=== PATIENT | female | born 1995 | race Caucasian/White ===

== ENCOUNTER 2017-11-20 08:36 | Day surgery (SDC) | payer MEDICAID ==
--- NOTE | 2017-11-20 08:55 | OR ---
Anesthesia Pre Procedure Eval Pre Procedure Evaluation: Last Vital Signs Temp 36.2 C L 11/20/17 08:48 Pulse 83 11/20/17 08:48 Resp 16 11/20/17 08:48 BP 134/66 11/20/17 08:48 Pulse Ox 95 11/20/17 08:48 O2 Oxygen Delivery Method Room Air PRE PROCEDURE EVALUATION:: DATE: 11/20/2017 TIME: 45 INDICATIONS: Lumbar puncture for CSF analysis. Headaches PAST MEDICAL HISTORY: Attempted lumbar puncture approximately 18 months ago without success. This procedure was done without fluoroscopy. EXAM: Lungs clear and equal. Heart rate regular. ASSESSMENT OF MEDICAL STATUS: Procedure risks and benefits were explained and accepted by the patient. No contraindication to fluoroscopy-guided lumbar puncture. PLANNED PROCEDURE : Fluoroscopy-guided lumbar puncture for CSF analysis. Home Medications: HOME MEDICATIONS Montelukast Sodium [Singulair] 10 mg PO DAILY 02/05/15 [Last Taken Unknown] Buspirone HCl 15 mg PO BID 08/10/16 [Last Taken Unknown] Folic Acid 0.8 mg PO DAILY 08/10/16 [Last Taken Unknown] Loratadine [Claritin] 10 mg PO DAILY 08/10/16 [Last Taken Unknown] Lurasidone HCl [Latuda] 40 mg PO DAILY 08/10/16 [Last Taken Unknown] Prazosin HCl [Minipress] 1 mg PO HS 08/10/16 [Last Taken Unknown] Venlafaxine HCl [Effexor Xr] 150 mg PO DAILY 08/10/16 [Last Taken Unknown] Fluticasone/Salmeterol [Advair 500-50 Diskus] 1 puff IH BID 11/15/17 [Last Taken Unknown] Levalbuterol HCl [Xopenex Concentrate] 1.25 mg IH Q4H 11/15/17 [Last Taken Unknown] Omeprazole 40 mg PO DAILY 11/15/17 [Last Taken Unknown] Vits96/Iron Fum/Folic [ S] 1 tab PO DAILY 11/15/17 [Last Taken Unknown] clonazePAM [Klonopin] 1 mg PO Q4H PRN 11/15/17 [Last Taken Unknown] traZODone HCL [Trazodone HCl] 100 mg PO DAILY 11/15/17 [Last Taken Unknown]
[2017-11-20] MEDS ORDERED: LIDOCAINE HCL 20 ML VIAL IJ ONE (09:22)
--- NOTE | 2017-11-20 10:22 | OR ---
Anesthesia Procedure Note - Anesthesia Procedure Note Narrative: Vital Signs - Last Taken Temp 36.2 C L 11/20/17 08:48 Pulse 70 11/20/17 10:00 Resp 18 11/20/17 10:00 BP 150/68 11/20/17 10:00 Pulse Ox 93 11/20/17 10:00 O2 Oxygen Delivery Method Room Air 11/20/17 10:14 ANESTHESIA PROCEDURE NOTE Date of procedure: 11/20/2017. Time of procedure: 08 09 through 1004. Performed by: Antonio Mayes CRNA [employer]: Laura Nicholson RN . Preprocedure diagnosis: Headaches. Post procedure diagnosis: Same. Procedure: Fluoroscopy-guided lumbar puncture for CSF analysis and CSF pressure measurements. Indications: Headaches. History of failed attempt at lumbar puncture without fluoroscopy. Findings: Patient brought the operating room #3 and placed in a prone position. Her back was prepped with DuraPrep. Fluoroscopy was used to identify opening at L4 5 interspace. 5 mL of 1% Xylocaine was injected before needle insertion. A 22-gauge 3 inch Marcos spinal needle was advanced( under fluoroscopic guidance. Unable to reach the dura with this needle. Fluoroscopy was used to identify opening at L3 4 interspace. A 22-gauge 3 inch Marcos spinal needle was advanced under fluoroscopic guidance but again was unable to reach the dura. A 22-gauge 7 inch Quincke spinal needle was then advanced under fluoroscopic guidance and dura was punctured. Patient was then carefully transferred into left lateral decubitus position. Opening CSF pressure was measured at 27. A total of 13 mL of clear CSF was obtained. 2 mL in each of the first 3 vials. And 7 mL and the fourth vial. Closing pressure was measured at 23. Total fluoroscopy time was 34.3 seconds. Total dose 27.58 m/ gy. EBL: Minimal. Fluids: N/A. Specimen: N/A. Post procedure condition: The patient tolerated the procedure well. No complications were noted. Thank you for this consultation Antonio Mayes CRNA
[2017-11-20 10:35] VITALS: BP 109/55
[2017-11-20 11:05] LABS: CSF Appearance Clear (CLEAR); CSF Color Colorless (COLORLESS); CSF Lymphocytes 100 % (0-100); CSF RBC 0 /uL (0-10); CSF WBC 2 /uL (0-10)
== END 2017-11-20 08:37 | disposition home or self-care (01) ==
LOC: AMB 08:36
PROVIDERS: ATTEND Student in an Organized Health Care Education/Training Program
PROC: 009U3ZX Drainage of Spinal Canal, Percutaneous Approach, Diagnostic (ICD-10-PCS; principal; 2017-11-20 09:15)
DX: R51 Headache (principal)

== ENCOUNTER 2019-01-16 17:22 | Observation (INO) ==
[2019-01-16] MEDS ORDERED: ALBUTEROL SULFATE/IPRATROPIUM 3 ML NEBU IH ONE ×2 (17:46→17:48)
--- NOTE | 2019-01-16 17:48 | ERNOTE ---
Date of Service: 01/16/19 Time Seen by Provider: 01/16/19 17:46 Stated Complaint: asthma s.o.b Presenting Symptoms:: cough Source: patient Exam Limitations: no limitations Immunizations: IMMUNIZATION HX Immunizations Up to Date Yes History of Influenza Vaccine Yes Hx Pneumococcal Vaccination No Allergies/Adverse Reactions: Allergies aspirin Allergy (Severe, Verified 01/16/19 17:34) Other Home Medications: HOME MEDICATIONS Montelukast Sodium [Singulair] 10 mg PO DAILY 02/05/15 [Last Taken Unknown] Folic Acid 0.8 mg PO DAILY 08/10/16 [Last Taken Unknown] Loratadine [Claritin] 10 mg PO DAILY 08/10/16 [Last Taken Unknown] Lurasidone HCl [Latuda] 40 mg PO DAILY 08/10/16 [Last Taken Unknown] Prazosin HCl [Minipress] 1 mg PO HS 08/10/16 [Last Taken Unknown] Fluticasone/Salmeterol [Advair 500-50 Diskus] 1 puff IH BID 11/15/17 [Last Taken Unknown] Omeprazole 40 mg PO DAILY 11/15/17 [Last Taken Unknown] Vits96/Iron Fum/Folic [ S] 1 tab PO DAILY 11/15/17 [Last Taken Unknown] clonazePAM [Klonopin] 1 mg PO Q4H PRN 11/15/17 [Last Taken Unknown] Albuterol Sulfate [Ventolin HFA] 1 puff INHALATION PRN PRN 01/16/19 [Last Taken Unknown] Bupropion HCl [Wellbutrin Sr] 300 mg PO DAILY 01/16/19 [Last Taken Unknown] Fluticasone Propionate [Flonase] 1 spray NS DAILY 01/16/19 [Last Taken Unknown] Furosemide [Lasix] 40 mg PO BID 01/16/19 [Last Taken Unknown] Tiotropium [place] [Spiriva] 2 cap INHALATION DAILY 01/16/19 [Last Taken Unknown] predniSONE [Prednisone] 20 mg PO DAILY 01/16/19 [Last Taken Unknown] - History of Present Ilness Narrative: The patient is a 23 year old female who presents for cough and dyspnea which has been present for 4 days. There are associated symptoms of wheezing and sternal chest discomfort with cough. The patient denies pain except with coughing. There are no alleviating factors. There are aggravating factors of activity. Previous treatments have included: albuterol without improvement. The past medical history includes: asthma, alpha-1 antitrypsin deficiency. The social history is positive for current tobacco use. The patient has had no known ill contacts. Patient states she had evaluation with her PCP today with outpatient CXR which they notified her was normal as well as increased her prednisone to 20mg po daily from 10mg. Timing: getting worse Review of Systems - Review of Systems Constitutional: Present: chills, fatigue. Absent: fever EYE: Present: no symptoms reported ENT: Present: sore throat. Absent: ear pain, nose congestion, nasal drainage Respiratory: Present: shortness of breath, cough, wheezing Cardiology: Present: chest pain Gastrointestinal/Abdominal: Present: no symptoms reported. Absent: nausea, vomiting, diarrhea, abdominal pain Genitourinary: Present: no symptoms reported. Absent: dysuria Musculoskeletal: Present: no symptoms reported Skin: Present: no symptoms reported. Absent: rash Neurological: Present: no symptoms reported Endocrine: Present: no symptoms reported Hematologic/Lymphatic: Present: no symptoms reported Psych: Present: no symptoms reported All Other Systems: All systems neg except as marked Medical History (Last Reviewed 01/16/19 @ 19:12 by BETSY Orellana) Hypca-7-hxkjwefkobe deficiency Asthma Collapsed lung Colonoscopy planned Surgical History: Surgical History (Last Reviewed 01/16/19 @ 19:12 by BETSY Orellana) History of lung biopsy History of tonsillectomy and adenoidectomy Family History: Family History (Last Updated 01/16/19 @ 19:49 by Mary Alice Loya RN) Other No pertinent family history Social History: Preferred Language Italian Smoking Status Current every day smoker Psych History Hx of Anxiety,Hx of Depression,Currently on Meds Alcohol Use none Drug Use none No Social History Section defined Physical Exam - Physical Exam General Appearance: Present: wd/wn, alert, mild distress Head Exam: Present: normal inspection Eye Exam: Normal inspection: bilateral Ears, Nose, Throat: Present: normal ENT inspection, pharyngeal erythema Neck: Present: normal inspection, nontender Respiratory: Present: chest nontender, accessory muscle use, decreased breath sounds, wheezing - diffuse expiratory and inspiratory wheezing Cardiovascular/Chest: Present: no murmur, tachycardia Neurological Exam: Present: alert, oriented, normal mood/affect Skin Exam: Present: normal color, warm/dry Progress - Date and Time Seen: Date and Time: 01/16/19 19:09 Discussed case with , informed that starting magnesium due to decreased responsiveness to albuterol treatments. Patient wheezing and dyspnea remained unchanged after 3 consecutive albuterol nebs. CXR obtained outpatient by [facility] report reviewed showing now acute cardiopulmonary abnormalities. - Results and Orders Patient's Lab Results:: I have reviewed the patient's lab results. - Vital Signs Patient's Vital Signs:: I have reviewed the patient's vital signs. Vital Signs: Vital Signs 01/16/19 17:23 Temperature 36.5 C Pulse Rate 100 Respiratory Rate 20 Blood Pressure 124/84 O2 Sat by Pulse Oximetry 96 - EKG EKG #1 EKG: NSR EKG read: Reviewed by me - Progress/Reassessment Chief Complaint: Asthma Departure Clinical Impression: Acute asthma exacerbation Qualifiers: Asthma severity: unspecified severity Asthma persistence: unspecified Qualified Code(s): J45.901 - Unspecified asthma with (acute) exacerbation - Departure Disposition: Still a patient Condition: Fair
[2019-01-16] MEDS ORDERED: METHYLPREDNISOLONE SOD SUCC/PF 125 MG/2 ML VIAL IV ONE (18:02)
[2019-01-16] MEDS ORDERED: ALBUTEROL SULFATE 2.5 MG/0.5 ML VIAL.NEB IH ONE ×2 (18:04→18:19)
[2019-01-16 18:27] LABS: Hematocrit 46.3 % (37.0-47.0); Mean Corpuscular Hemoglobin 30.1 pg (27-31); Mean Corpuscular Hgb Conc 34.6 g/dl (32-36); Mean Platelet Volume 8.6 fl (8-12.5); Neutrophil # 7.1 K/mm3 (1.3-6.0); Neutrophil % 70.2 % (42-75.0); Platelet Count 288 K/mm3 (150-450); Red Blood Count 5.32 M/mm3 (4.2-5.4); Red Cell Distribution Width 12.9 % (11.5-14.0); White Blood Count 10.1 K/mm3 (4.0-10.5)
[2019-01-16] MEDS ORDERED: ACETAMINOPHEN 500 MG TABLET PO ONE (18:30)
[2019-01-16 18:43] LABS: ALT 25 U/L (19-67); AST 18 U/L (0-48); Albumin * 3.9 gm/dl (3.4-5.0); Alkaline Phosphatase * 76 U/L (50-170); Anion Gap 18.8 mmol/L (6.8-13.8); BUN/Creatinine Ratio 6.9 (9.0-21.6); Bilirubin, Total 0.5 mg/dL (0.0-1.1); Blood Urea Nitrogen 6 mg/dL (3-23); Ca. Corrected For Albumin 9.1 mg/dL (8.4-10.2); Calcium * 9.3 mg/dL (7.9-10.9); Carbon Dioxide 21.1 mmol/L (24-32.6); Chloride 106 mmol/L (97-106); Glucose * 130 mg/dL (70-110); Potassium 3.9 mmol/L (3.4-4.6); Sodium 142 mmol/L (132-142); Total Protein 7.8 gm/dL (6.2-8.2); Troponin I Less than 0.017 ng/mL (0.00-0.10)
[2019-01-16] MEDS ORDERED: WATER IV ONE (19:15)
[2019-01-16] MEDS ORDERED: MAGNESIUM SULFATE IV ONE (19:15)
[2019-01-16] MEDS ORDERED: NICOTINE 21 MG PATC TD SCH (19:15)
[2019-01-17] MEDS: ALBUTEROL SULFATE/IPRATROPIUM 3 ML NEBU IH SCH ×2 (05:20→13:13)
[2019-01-17] MEDS ORDERED: ACETAMINOPHEN 325 MG TABLET PO PRN (07:07)
--- NOTE | 2019-01-17 11:48 | HP ---
Chief Complaint - Chief Complaint Date of Service: 01/17/19 Time of Service: 11:43 Chief Complaint: SOB History of Present Illness: 23-year-old female with a past medical history of asthma, alpha-1 antitrypsin deficiency, collapsed lung presents with a 4-day history of cough and dyspnea. Associated with a cough. Patient had recently been seen as an outpatient and her prednisone dose was increased to 20 mg a day from 10 mg daily. She did not get relief from her new dose presented to the emergency room. In the emergency department she received a dose of Solu-Medrol, and multiple number like nebulizer treatments with good relief of her symptoms. She states she feels better today. Her vitals are stable. She feels ready to go home. Medical History (Last Updated 01/16/19 @ 21:03 by Charo Trinidad RN) [id number] deficiency Asthma COPD (chronic obstructive pulmonary disease) Collapsed lung Colonoscopy planned Surgical History: Surgical History (Last Reviewed 01/16/19 @ 21:03 by Charo Trinidad RN) History of lung biopsy History of tonsillectomy and adenoidectomy Family History: Family History (Last Reviewed 01/16/19 @ 21:03 by Charo Trinidad RN) Grandfather FH: lung cancer Grandmother FH: lung cancer Mother COPD (chronic obstructive pulmonary disease) Other Lung cancer No pertinent family history Social History: Patient Lives/Resources With Parents Utilized Occupation [employer] Preferred Language Lao Do you have any nondenominational or No cultural preference? Smoking Status Current every day smoker Have you smoked in the past 12 Yes months Do you dip or chew tobacco No Psych History Hx of Anxiety,Hx of Depression,Currently on Meds Alcohol Use none Drug Use none No Social History Section defined Review Of Systems (GEN) - Review of Systems Generalized/Overall Review: Absent: Chills, Fever Respiratory: Present: Cough, Shortness of Breath Cardiac: Present: Chest Pain Neurological: Present: Headache Misc: All systems neg except as marked Immunizations: IMMUNIZATION HX Immunizations Up to Date Yes History of Influenza Vaccine Yes Hx Pneumococcal Vaccination No Allergies/Adverse Reactions: Allergies Allergy/AdvReac Type Severity Reaction Status Date / Time aspirin Allergy Severe Other Verified 01/16/19 17:34 Home Medications: HOME MEDICATIONS Montelukast Sodium [Singulair] 10 mg PO DAILY 02/05/15 [Last Taken Unknown] Folic Acid 0.8 mg PO DAILY 08/10/16 [Last Taken Unknown] Loratadine [Claritin] 10 mg PO DAILY 08/10/16 [Last Taken Unknown] Lurasidone HCl [Latuda] 40 mg PO DAILY 08/10/16 [Last Taken Unknown] Prazosin HCl [Minipress] 1 mg PO HS 08/10/16 [Last Taken Unknown] Fluticasone/Salmeterol [Advair 500-50 Diskus] 1 puff IH BID 11/15/17 [Last Taken Unknown] Omeprazole 40 mg PO DAILY 11/15/17 [Last Taken Unknown] Vits96/Iron Fum/Folic [ S] 1 tab PO DAILY 11/15/17 [Last Taken Unknown] clonazePAM [Klonopin] 1 mg PO Q4H PRN 11/15/17 [Last Taken Unknown] Albuterol Sulfate [Ventolin HFA] 1 puff INHALATION PRN PRN 01/16/19 [Last Taken Unknown] Bupropion HCl [Wellbutrin Sr] 300 mg PO DAILY 01/16/19 [Last Taken Unknown] Fluticasone Propionate [Flonase] 1 spray NS DAILY 01/16/19 [Last Taken Unknown] Furosemide [Lasix] 40 mg PO BID 01/16/19 [Last Taken Unknown] Tiotropium [place] [Spiriva] 2 cap INHALATION DAILY 01/16/19 [Last Taken Unknown] predniSONE [Prednisone] 20 mg PO DAILY 01/16/19 [Last Taken Unknown] Exam - Exam Vital Signs: Vital Signs - Last Taken Temp 35.9 C L 01/17/19 09:00 Pulse 107 H 01/17/19 09:00 Resp 18 01/17/19 09:00 BP 117/65 01/17/19 09:00 Pulse Ox 95 01/17/19 09:00 Constitutional: Present: Alert, Oriented x3, Cooperative, Well developed, Well nourished, No distress ENT Exam: Present: hearing grossly normal Eye Exam: bilateral eye: normal inspection Neck: Present: supple, trachea midline. Absent: lymphadenopathy (R), lymphadenopathy (L) Back Exam: Present: normal inspection Respiratory: Present: no accessory muscle use, wheezing - Diffuse expiratory wheezes bilaterally Cardiovascular/Chest: Present: normal peripheral pulses, regular rate, rhythm, no edema, no murmur Peripheral Pulses: dorsalis-pedis (R): 2+, dorsalis-pedis (L): 2+ Abdomen: Present: Normal bowel sounds, nontender Extremity: Present: no pedal edema Skin Exam: Present: normal color, warm/dry Neurologic: Present: alert, normal mood/affect Appearance: Present: appropriate appearance Eye contact: Present: cooperative Thoughts: Present: normal thought pattern Diagnostic Studies: Abnormal Lab Results 01/16/19 01/16/19 Range/Units 18: 18:20 Neutrophils # 7.1 H (1.3-6.0) K/mm3 Carbon Dioxide 21.1 L (24-32.6) mmol/L Anion Gap 18.8 H (6.8-13.8) mmol/L BUN/Creatinine Ratio 6.9 L (9.0-21.6) Random Glucose 130 H (70-110) mg/dL Laboratory Results WBC 10.1 K/mm3 (4.0-10.5) 01/16/19 18:20 RBC 5.32 M/mm3 (4.2-5.4) 01/16/19 18:20 Hgb 16.0 gm/dL (12.5-16.0) 01/16/19 18:20 Hct 46.3 % (37.0-47.0) 01/16/19 18:20 MCV 87.0 fl (78-100) 01/16/19 18:20 MCH 30.1 pg (27-31) 01/16/19 18:20 MCHC 34.6 g/dl (32-36) 01/16/19 18:20 RDW 12.9 % (11.5-14.0) 01/16/19 18:20 Plt Count 288 K/mm3 (150-450) 01/16/19 18:20 MPV 8.6 fl (8-12.5) 01/16/19 18:20 Immature Gran % (Auto) 0.30 % (0.001-0.429) 01/16/19 18:20 Immature Gran # (Auto) 0.03 K/mm3 (0.000-0.0310) 01/16/19 18:20 Neutrophils % 70.2 % (42-75.0) 01/16/19 18:20 Lymphocytes % 23.7 % (20-51) 01/16/19 18:20 Monocytes % 5.3 % (0.0-9) 01/16/19 18:20 Eosinophils % 0.1 % (0.0-3.0) 01/16/19 18:20 Basophils % 0.4 % (0.0-1.0) 01/16/19 18:20 Nucleated RBC % 0.0 k/mm3 (0-1) 01/16/19 18:20 Neutrophils # 7.1 K/mm3 (1.3-6.0) H 01/16/19 18:20 Lymphocytes # 2.39 k/mm3 (1.5-3.5) 01/16/19 18:20 Monocytes # 0.5 k/mm3 (0.0-1.0) 01/16/19 18:20 Eosinophils # 0.0 k/mm3 (0.0-0.7) 01/16/19 18:20 Absolute Basophils 0.0 k/mm3 (0.0-0.1) 01/16/19 18:20 D-Dimer 0.28 ug/mL (0.19-0.49) 01/16/19 18:20 Sodium 142 mmol/L (132-142) 01/16/19 18:20 Plasma Sodium 142 mmol/L (130-142) 01/16/19 18:20 Potassium 3.9 mmol/L (3.4-4.6) 01/16/19 18:20 Chloride 106 mmol/L (97-106) 01/16/19 18:20 Carbon Dioxide 21.1 mmol/L (24-32.6) L 01/16/19 18:20 Anion Gap 18.8 mmol/L (6.8-13.8) H 01/16/19 18:20 BUN 6 mg/dL (3-23) 01/16/19 18:20 Creatinine 0.87 mg/dL (0.4-1.4) 01/16/19 18:20 Est GFR (Non-Af Amer) 84 mL/min (60-130) 01/16/19 18:20 BUN/Creatinine Ratio 6.9 (9.0-21.6) L 01/16/19 18:20 Random Glucose 130 mg/dL (70-110) H 01/16/19 18:20 Calcium 9.3 mg/dL (7.9-10.9) 01/16/19 18:20 Calcium Adj for Albumin 9.1 mg/dL (8.4-10.2) 01/16/19 18:20 Magnesium 2.2 mg/dL (1.2-2.8) 01/16/19 18:20 Total Bilirubin 0.5 mg/dL (0.0-1.1) 01/16/19 18:20 AST 18 U/L (0-48) 01/16/19 18:20 ALT 25 U/L (19-67) 01/16/19 18:20 Alkaline Phosphatase 76 U/L (50-170) 01/16/19 18:20 Troponin I Less than 0.017 ng/mL (0.00-0.10) 01/16/19 18:20 Total Protein 7.8 gm/dL (6.2-8.2) 01/16/19 18:20 Albumin 3.9 gm/dl (3.4-5.0) 01/16/19 18:20 Assessment/Plan - Narrative Narrative: 23-year-old female with a past medical history of alpha-1 antitrypsin deficiency, asthma, collapsed lung presents with asthma exacerbation. Chest x- ray negative. Responded well to IV Solu-Medrol and magnesium and nebulizers. - Assessment/Plan (1) Acute asthma exacerbation Assessment: Resolved with Solu-Medrol, magnesium and nebulizers. Problem: Resolved Qualifiers: Asthma severity: unspecified severity Asthma persistence: unspecified Qualified Code(s): J45.901 - Unspecified asthma with (acute) exacerbation (2) Sinuv-[id number] deficiency Assessment: She is on chronic steroids, continue current dose of prednisone at 20 mg daily. 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 Problem: Chronic
--- NOTE | 2019-01-17 12:05 | DS ---
(1) Acute asthma exacerbation Problem: Resolved Qualifiers: Asthma severity: unspecified severity Asthma persistence: unspecified Qualified Code(s): J45.901 - Unspecified asthma with (acute) exacerbation (2) [id number] deficiency Problem: Chronic Description of Stay: 23-year-old female with a past medical history of asthma, alpha-1 antitrypsin deficiency, collapsed lung presents with an acute asthma exacerbation. She is on chronic steroids and it had recently been increased to 20 mg/day. She states she has missed her medication for the alpha-1 antitrypsin and was to 3 weeks ago. This may be a contributing factor to her asthma exacerbation. She was given 1 dose of Solu-Medrol, multiple doses of nebulizers, 1 dose of magnesium with good response. She will be discharged back to home today. Procedures Performed: none Results and Findings: Lab Pending Results 01/16/19 18:20: WBC 10.1, RBC 5.32, Hgb 16.0, Hct 46.3, MCV 87.0, MCH 30.1, MCHC 34.6, RDW 12.9, Plt Count 288, MPV 8.6, Immature Gran % (Auto) 0.30, Immature Gran # (Auto) 0.03, Neutrophils % 70.2, Lymphocytes % 23.7, Monocytes % 5.3, Eosinophils % 0.1, Basophils % 0.4, Nucleated RBC % 0.0, Neutrophils # 7.1 H, Lymphocytes # 2.39, Monocytes # 0.5, Eosinophils # 0.0, Absolute Basophils 0.0 01/16/19 18:20: Sodium 142, Plasma Sodium 142, Potassium 3.9, Chloride 106, Carbon Dioxide 21.1 L, Anion Gap 18.8 H, BUN 6, Creatinine 0.87, Est GFR (Non-Af Amer) 84, BUN/Creatinine Ratio 6.9 L, Random Glucose 130 H, Calcium 9.3, Calcium Adj for Albumin 9.1, Total Bilirubin 0.5, AST 18, ALT 25, Alkaline Phosphatase 76, Troponin I Less than 0.017, Total Protein 7.8, Albumin 3.9 01/16/19 18:20: D-Dimer 0.28 01/16/19 18:20: Magnesium 2.2 Discharge Location: Home Disposition: Home self-care Condition: Fair Discharge Activity: Activity as tolerated Discharge Diet: General/regular food Referrals: Beatriz Rivera ARNP [Primary Care Provider] - Complete Home Medications List: Complete Home Medication List: Montelukast Sodium [Singulair] 10 mg PO DAILY 02/05/15 Folic Acid 0.8 mg PO DAILY 08/10/16 Loratadine [Claritin] 10 mg PO DAILY 08/10/16 Lurasidone HCl [Latuda] 40 mg PO DAILY 08/10/16 Prazosin HCl [Minipress] 1 mg PO HS 08/10/16 Fluticasone/Salmeterol [Advair 500-50 Diskus] 1 puff IH BID 11/15/17 Omeprazole 40 mg PO DAILY 11/15/17 Vits96/Iron Fum/Folic [ S] 1 tab PO DAILY 11/15/17 clonazePAM [Klonopin] 1 mg PO Q4H PRN 11/15/17 Albuterol Sulfate [Ventolin HFA] 1 puff INHALATION PRN PRN 01/16/19 Bupropion HCl [Wellbutrin Sr] 300 mg PO DAILY 01/16/19 Fluticasone Propionate [Flonase] 1 spray NS DAILY 01/16/19 Furosemide [Lasix] 40 mg PO BID 01/16/19 Tiotropium [place] [Spiriva] 2 cap INHALATION DAILY 01/16/19 predniSONE [Prednisone] 20 mg PO DAILY 01/16/19
[2019-01-17 16:10] VITALS: BP 129/69
== END 2019-01-17 14:30 | disposition home or self-care (01) ==
LOC: MS 17:22 → ER 17:22
PROVIDERS: ADMIT Internal Medicine; ATTEND Internal Medicine
CPT/HCPCS: 36415; 80053; 83735; 84484; 85025; 85379; 93005; 94640; 94664; 94760; 96365; 96375; 99285; G0378

== ENCOUNTER 2019-04-20 12:07 | Observation (INO) ==
[2019-04-20] MEDS ORDERED: METHYLPREDNISOLONE SOD SUCC/PF 125 MG/2 ML VIAL IV ONE (12:35)
[2019-04-20] MEDS ORDERED: ALBUTEROL SULFATE/IPRATROPIUM 3 ML NEBU IH ONE ×2 (12:35→17:58)
[2019-04-20 12:55] LABS: Hematocrit 46.6 % (37.0-47.0); Hemoglobin 15.8 gm/dL (12.5-16.0); Mean Cell Volume 89.3 fl (78-100); Mean Corpuscular Hemoglobin 30.3 pg (27-31); Mean Corpuscular Hgb Conc 33.9 g/dl (32-36); Mean Platelet Volume 8.8 fl (8-12.5); Neutrophil # 2.8 K/mm3 (1.3-6.0); Neutrophil % 44.3 % (42-75.0); Platelet Count 238 K/mm3 (150-450); Red Blood Count 5.22 M/mm3 (4.2-5.4); Red Cell Distribution Width 12.7 % (11.5-14.0); White Blood Count 6.3 K/mm3 (4.0-10.5)
[2019-04-20 13:07] LABS: Albumin * 3.3 gm/dl (3.4-5.0); Anion Gap 17.3 mmol/L (6.8-13.8); BUN/Creatinine Ratio 9.9 (9.0-21.6); Bilirubin, Total 0.7 mg/dL (0.0-1.1); Ca. Corrected For Albumin 8.5 mg/dL (8.4-10.2); Calcium * 8.3 mg/dL (7.9-10.9); Carbon Dioxide 22.6 mmol/L (24-32.6); Potassium 3.9 mmol/L (3.4-4.6); Total Protein 6.8 gm/dL (6.2-8.2)
--- NOTE | 2019-04-20 13:18 | ERNOTE ---
Dyspnea - Date Date of Service: 04/20/19 - General Presenting Symptoms: shortness of breath Time Seen by Provider: 04/20/19 12:29 Source: patient Exam Limitations: no limitations - Immun/Allergies/Home Medications Immunizations: IMMUNIZATION HX Immunizations Up to Date Yes History of Influenza Vaccine Yes Hx Pneumococcal Vaccination Yes Allergies/Adverse Reactions: Allergies aspirin Allergy (Severe, Verified 04/20/19 12:19) Other corn Allergy (Verified 04/20/19 12:19) hives Milk Containing Products Allergy (Verified 04/20/19 12:19) Hives peanut Allergy (Verified 04/20/19 12:19) Hives Home Medications: HOME MEDICATIONS Montelukast Sodium [Singulair] 10 mg PO DAILY 02/05/15 [Last Taken Unknown] Folic Acid 0.8 mg PO DAILY 08/10/16 [Last Taken Unknown] Loratadine [Claritin] 10 mg PO DAILY 08/10/16 [Last Taken Unknown] Lurasidone HCl [Latuda] 40 mg PO DAILY 08/10/16 [Last Taken Unknown] Prazosin HCl [Minipress] 1 mg PO HS 08/10/16 [Last Taken Unknown] Fluticasone Propion/Salmeterol [Advair 500-50 Diskus] 1 puff IH BID 11/15/17 [Last Taken Unknown] Omeprazole 40 mg PO DAILY 11/15/17 [Last Taken Unknown] Vits96/Iron Fum/Folic [ S] 1 tab PO DAILY 11/15/17 [Last Taken Unknown] clonazePAM [Klonopin] 1 mg PO Q4H PRN 11/15/17 [Last Taken Unknown] Albuterol Sulfate [Ventolin HFA] 1 puff INHALATION PRN PRN 01/16/19 [Last Taken Unknown] Bupropion HCl [Wellbutrin Sr] 300 mg PO DAILY 01/16/19 [Last Taken Unknown] Fluticasone Propionate [Flonase] 1 spray NS DAILY 01/16/19 [Last Taken Unknown] Furosemide [Lasix] 40 mg PO BID 01/16/19 [Last Taken Unknown] Tiotropium [place] [Spiriva] 2 cap INHALATION DAILY 01/16/19 [Last Taken Unknown] predniSONE [Prednisone] 5 mg PO DAILY 01/16/19 [Last Taken Unknown] - History of Present Illness Narrative: Patient presents to the ED for feeling SOB. She feels like this is her COPD. She states it is really bad when she wakes up with it which is what happened today. She has been SOB this morning. No pleuritic pain. No PE symptoms. She has chest tightness with this SOB which is normal for her. She has had some coughing. No fever. No other recent illnesses. Severity: moderate Treatment DOUBLE END TRIMMER: other - inhalers DOUBLE END TRIMMER. Initiating event: Denies: out of meds Modifying Factors - (Improves): Reports: nothing Modifying Factors (Worsens): Reports: activity Associated Symptoms-Dyspnea: Denies: fever/chills, leg/calf pain, weakness Prior Treatment: Denies: currently on antibiotics Review of Systems - Review of Systems Constitutional: Absent: fever ENT: Absent: sore throat Respiratory: Present: shortness of breath Cardiology: Present: See HPI Gastrointestinal/Abdominal: Absent: abdominal pain Genitourinary: Absent: dysuria Skin: Absent: rash Neurological: Absent: weakness All Other Systems: All systems neg except as marked Medical History (Updated 03/13/19 @ 14:00 by Renée Parham RN) Jowiy-4-fhjkpjszggc deficiency Asthma Onset Date: ~12/2015 usually hospitalized yearly for asthma COPD (chronic obstructive pulmonary disease) Collapsed lung Heart murmur Lung mass Anxiety Depression GERD (gastroesophageal reflux disease) HSV (herpes simplex virus) infection Type 2 NAFLD (nonalcoholic fatty liver disease) Obesity Irregular periods Pelvic pain Onset Date: ~02/03/16 Surgical History: Surgical History (Updated 03/13/19 @ 14:00 by Renée Parham RN) Colonoscopy planned History of lung biopsy lung mass History of tonsillectomy and adenoidectomy Onset Date: ~1999 [place] teeth extracted Family History: Family History (Updated 03/13/19 @ 14:14 by Renée Parham RN) Grandfather FH: lung cancer Grandmother FH: lung cancer Hypertension Mother COPD (chronic obstructive pulmonary disease) Rheumatoid arthritis Asthma Fibromyalgia Osteoarthritis Lung nodules Emphysema lung Father Schizophrenia Anxiety Liver disease Stomach cancer Brother Epilepsy Grandmother Ywkvn-3-gibwnvxdlun deficiency COPD (chronic obstructive pulmonary disease) Other Lung cancer Social History: Preferred Language Lithuanian Do you have any voodoo or No cultural preference? Smoking Status Current every day smoker Psych History Hx of Anxiety,Hx of Depression,Currently on Meds Alcohol Use none Drug Use none No Social History Section defined Physical Exam - Physical Exam General Appearance: Present: alert, mild distress, other - tachypnea noted Head Exam: Present: normal inspection, no evidence of injury Eye Exam: Normal inspection: bilateral, PERRL: bilateral Ears, Nose, Throat: Present: nasal congestion. Absent: pharyngeal erythema, dry mucous membranes Neck: Present: normal inspection Respiratory: Present: wheezing, other - I:E wheezes in both lung zaman. Cardiovascular/Chest: Present: regular rate, rhythm, normal peripheral pulses Gastrointestinal/Abdominal: Present: normal bowel sounds, nontender, soft Back Exam: Absent: CVA tenderness (R), CVA tenderness (L) Extremity Exam: Present: normal inspection, normal range of motion Neurological Exam: Present: alert, no motor/sensory deficits Skin Exam: Present: normal color, warm/dry Progress - Results and Orders Patient's Lab Results:: I have reviewed the patient's lab results. - Vital Signs Patient's Vital Signs:: I have reviewed the patient's vital signs. Vital Signs: Vital Signs 04/20/19 12:08 Temperature 36.5 C Pulse Rate 92 Respiratory Rate 26 H Blood Pressure 117/72 O2 Sat by Pulse Oximetry 98 - EKG EKG #1 EKG: NSR EKG read: Interp. by me EKG Comments: NSR rate 92. Non-specific, no STEMI noted. - X-Ray X-Ray #1 X-Ray: chest Interpretation: Interp. by me X-ray Comments: I reviewed official radiology report for CXR - Progress/Reassessment Chief Complaint: Dyspnea Progress Note-Subjective: 04/20/19 15:24 Patient received Duoneb, albuterol and 3rd albuterol with Solumedrol. After the 3rd treatment her wheezing was improved but still present in both lungs. She related that she get put in the hospital when this happens. I discussed options with her and she would like me to speak to the telephone engineer physician about admitting her. I spoke to Dr Butler who agreed to observation. ABG was unsuccessful. Departure Clinical Impression: Asthma exacerbation - Departure Disposition: Still a patient Condition: Stable Referrals: Beatriz Rivera ARNP [Primary Care Provider] -
[2019-04-20] MEDS ORDERED: ALBUTEROL SULFATE 2.5 MG/0.5 ML VIAL.NEB IH ONE ×3 (13:25→14:45)
[2019-04-20] MEDS ORDERED: METHYLPREDNISOLONE SOD SUCC/PF 125 MG/2 ML VIAL IM ONE (13:51)
[2019-04-20] MEDS ORDERED: ALBUTEROL SULFATE/IPRATROPIUM 3 ML NEBU IH SCH (16:30)
--- NOTE | 2019-04-20 17:42 | HP ---
Chief Complaint - Chief Complaint Date of Service: 04/20/19 Time of Service: 17:42 Chief Complaint: Shortness of breath, chest tightness History of Present Illness: Shayy is a 23 yo female with qilim-4-upbwvgnrsao disease, asthma, a nd allergies. She was hospitalized last month for asthma exacerbation and she presented to the ER today because her symptoms felt just like that episode. She reports shortness of breath and chest tightness started 3 days ago and has been getting worse. In the ER she had no hypoxia, chest xray was clear, and bloodwork was overall ok. She felt significant dyspnea and felt unsafe at home. Medical History (Updated 04/20/19 @ 17:42 by Dillon Butler DO) Ymyyq-4-qkakityvjse deficiency Asthma Onset Date: ~12/2015 usually hospitalized yearly for asthma COPD (chronic obstructive pulmonary disease) Collapsed lung Heart murmur Lung mass Anxiety Depression GERD (gastroesophageal reflux disease) HSV (herpes simplex virus) infection Type 2 NAFLD (nonalcoholic fatty liver disease) Obesity Irregular periods Pelvic pain Onset Date: ~02/03/16 Surgical History: Surgical History (Updated 04/20/19 @ 17:42 by Dillon Butler DO) Colonoscopy planned History of lung biopsy lung mass History of tonsillectomy and adenoidectomy Onset Date: ~1999 [place] teeth extracted Family History: Family History (Updated 03/13/19 @ 14:14 by Renée Parham RN) Grandfather FH: lung cancer Grandmother FH: lung cancer Hypertension Mother COPD (chronic obstructive pulmonary disease) Rheumatoid arthritis Asthma Fibromyalgia Osteoarthritis Lung nodules Emphysema lung Father Schizophrenia Anxiety Liver disease Stomach cancer Brother Epilepsy Grandmother Ibyme-6-trtcyfseoyr deficiency COPD (chronic obstructive pulmonary disease) Other Lung cancer Social History: Patient Lives/Resources Home Utilized Preferred Language Sami Do you have any yarsanism or No cultural preference? Smoking Status Current every day smoker Have you smoked in the past 12 Yes months Psych History Hx of Anxiety,Hx of Depression,Currently on Meds Alcohol Use none Drug Use none No Social History Section defined Review Of Systems (GEN) - Review of Systems Generalized/Overall Review: Present: Fatigue. Absent: Weakness, Chills, Fever EENTM: Present: No Symptoms Reported Respiratory: Present: Cough, Shortness of Breath Cardiac: Absent: Chest Pain, Edema, Palpitations, Syncope Abdominal: Absent: Nausea, Vomiting Genitourinary: Present: No Symptoms Reported Musculoskeletal: Present: No Symptoms Reported Neurological: Present: No Symptoms Reported Skin: Present: No Symptoms Reported Endocrine: Present: No Symptoms Reported Immunizations: IMMUNIZATION HX Immunizations Up to Date Yes History of Influenza Vaccine Yes Hx Pneumococcal Vaccination Yes Allergies/Adverse Reactions: Allergies Allergy/AdvReac Type Severity Reaction Status Date / Time aspirin Allergy Severe Other Verified 04/20/19 12:19 corn Allergy hives Verified 04/20/19 12:19 Milk Containing Products Allergy Hives Verified 04/20/19 12:19 peanut Allergy Hives Verified 04/20/19 12:19 Home Medications: HOME MEDICATIONS Montelukast Sodium [Singulair] 10 mg PO DAILY 02/05/15 [Last Taken Unknown] Folic Acid 0.8 mg PO DAILY 08/10/16 [Last Taken Unknown] Loratadine [Claritin] 10 mg PO DAILY 08/10/16 [Last Taken Unknown] Lurasidone HCl [Latuda] 40 mg PO DAILY 08/10/16 [Last Taken Unknown] Prazosin HCl [Minipress] 1 mg PO HS 08/10/16 [Last Taken Unknown] Fluticasone Propion/Salmeterol [Advair 500-50 Diskus] 1 puff IH BID 11/15/17 [Last Taken Unknown] Vits96/Iron Fum/Folic [ S] 1 tab PO DAILY 11/15/17 [Last Taken Unknown] clonazePAM [Klonopin] 1 mg PO Q4H PRN 11/15/17 [Last Taken Unknown] Albuterol Sulfate [Ventolin HFA] 1 puff INHALATION PRN PRN 01/16/19 [Last Taken Unknown] Bupropion HCl [Wellbutrin Sr] 300 mg PO DAILY 01/16/19 [Last Taken Unknown] Fluticasone Propionate [Flonase] 1 spray NS DAILY 01/16/19 [Last Taken Unknown] Furosemide [Lasix] 40 mg PO DAILY 01/16/19 [Last Taken Unknown] Tiotropium [place] [Spiriva] 2 cap INHALATION DAILY 01/16/19 [Last Taken Unknown] predniSONE [Prednisone] 5 mg PO DAILY 01/16/19 [Last Taken Unknown] Levalbuterol Tartrate [Xopenex Hfa] 15 gm INHALATION Q4H PRN 04/20/19 [Last Taken Unknown] Exam - Exam Vital Signs: Vital Signs - Last Taken Temp 36.0 C 04/20/19 16:34 Pulse 84 04/20/19 16:34 Resp 18 04/20/19 16:34 BP 93/57 04/20/19 16:34 Pulse Ox 95 04/20/19 16:34 Constitutional: Present: Alert, Oriented x3, Cooperative, Obese ENT Exam: Present: normal ENT inspection Eye Exam: bilateral eye: normal inspection Respiratory: Present: rhonchi, wheezing Cardiovascular/Chest: Present: regular rate, rhythm, no murmur Abdomen: Present: Normal bowel sounds, soft, nontender, nondistended Skin Exam: Present: normal color, warm/dry, no cyanosis Diagnostic Studies: Abnormal Lab Results 04/20/19 Range/Units 12:50 Carbon Dioxide 22.6 L (24-32.6) mmol/L Anion Gap 17.3 H (6.8-13.8) mmol/L Random Glucose 119 H (70-110) mg/dL Albumin 3.3 L (3.4-5.0) gm/dl Laboratory Results WBC 6.3 K/mm3 (4.0-10.5) 04/20/19 12:50 RBC 5.22 M/mm3 (4.2-5.4) 04/20/19 12:50 Hgb 15.8 gm/dL (12.5-16.0) 04/20/19 12:50 Hct 46.6 % (37.0-47.0) 04/20/19 12:50 MCV 89.3 fl (78-100) 04/20/19 12:50 MCH 30.3 pg (27-31) 04/20/19 12:50 MCHC 33.9 g/dl (32-36) 04/20/19 12:50 RDW 12.7 % (11.5-14.0) 04/20/19 12:50 Plt Count 238 K/mm3 (150-450) 04/20/19 12:50 MPV 8.8 fl (8-12.5) 04/20/19 12:50 Immature Gran % (Auto) 0.30 % (0.001-0.429) 04/20/19 12:50 Immature Gran # (Auto) 0.02 K/mm3 (0.000-0.0310) 04/20/19 12:50 44.3 % (42-75.0) 04/20/19 12:50 44.0 % (20-51) 04/20/19 12:50 7.8 % (0.0-9) 04/20/19 12:50 3.0 % (0.0-3.0) 04/20/19 12:50 0.6 % (0.0-1.0) 04/20/19 12:50 Nucleated RBC % 0.0 k/mm3 (0-1) 04/20/19 12:50 2.8 K/mm3 (1.3-6.0) 04/20/19 12:50 2.76 k/mm3 (1.5-3.5) 04/20/19 12:50 0.5 k/mm3 (0.0-1.0) 04/20/19 12:50 0.2 k/mm3 (0.0-0.7) 04/20/19 12:50 Absolute Basophils 0.0 k/mm3 (0.0-0.1) 04/20/19 12:50 Sodium 141 mmol/L (132-142) 04/20/19 12:50 141 mmol/L (130-142) 04/20/19 12:50 Potassium 3.9 mmol/L (3.4-4.6) 04/20/19 12:50 Chloride 105 mmol/L (97-106) 04/20/19 12:50 Carbon Dioxide 22.6 mmol/L (24-32.6) L 04/20/19 12:50 17.3 mmol/L (6.8-13.8) H 04/20/19 12:50 BUN 7 mg/dL (3-23) 04/20/19 12:50 0.71 mg/dL (0.4-1.4) 04/20/19 12:50 Est GFR (Non-Af Amer) 107 mL/min (60-130) D 04/20/19 12:50 9.9 (9.0-21.6) 04/20/19 12:50 119 mg/dL (70-110) H 04/20/19 12:50 Calcium 8.3 mg/dL (7.9-10.9) 04/20/19 12:50 Calcium Adj for Albumin 8.5 mg/dL (8.4-10.2) 04/20/19 12:50 0.7 mg/dL (0.0-1.1) 04/20/19 12:50 AST 20 U/L (0-48) 04/20/19 12:50 ALT 36 U/L (19-67) 04/20/19 12:50 68 U/L (50-170) 04/20/19 12:50 6.8 gm/dL (6.2-8.2) 04/20/19 12:50 3.3 gm/dl (3.4-5.0) L 04/20/19 12:50 Serum HCG, Qual Negative (NEGATIVE) 04/20/19 12:50 Assessment/Plan - Procedures Results: Shayy is a 23 yo female with aihqp-8-jcduggqsdyc disease and asthma who presents to the ER with exacerbation. There is no hypoxia or evidence of pneumonia. Vitals are overall stable. However she recently had to be admitted for asthma exacerbation and reports this feels just like that episode. She feels unsafe at home. I will admit to observation to monitor over night while we initiate therapy of steroids, azithromycin, and duonebs. Anticipate 1 midnight stay and discharge to home tomorrow if symptoms not worsening. - Assessment/Plan (1) Acute asthma exacerbation Problem: Resolved Qualifiers: Asthma severity: unspecified severity Asthma persistence: unspecified Qualified Code(s): J45.901 - Unspecified asthma with (acute) exacerbation (2) Yjmvu-3-iphwvussjrw deficiency Problem: Chronic
[2019-04-20] MEDS: ACETAMINOPHEN 500 MG TABLET PO PRN (17:45)
[2019-04-20] MEDS: ALBUTEROL SULFATE/IPRATROPIUM 3 ML NEBU IH SCH (17:59)
[2019-04-20] MEDS ORDERED: AZITHROMYCIN 250 MG TABLET PO ONE (18:30)
[2019-04-21] MEDS: ALBUTEROL SULFATE/IPRATROPIUM 3 ML NEBU IH SCH ×3 (00:01→13:53)
[2019-04-21] MEDS: ACETAMINOPHEN 500 MG TABLET PO PRN ×2 (02:02→08:07)
[2019-04-21] MEDS ORDERED: clonazePAM 1 MG TABLET PO PRN (08:30)
[2019-04-21] MEDS ORDERED: LORATADINE 10 MG TABLET PO SCH (09:00)
[2019-04-21] MEDS ORDERED: predniSONE 20 MG TABLET PO SCH (09:00)
[2019-04-21] MEDS ORDERED: FLUTICASONE PROPIONATE 120 SPRAY INHALER NS SCH (09:00)
[2019-04-21] MEDS ORDERED: PRENATAL VITS96/IRON FUM/FOLIC 1 TAB TABLET PO SCH (09:00)
[2019-04-21] MEDS ORDERED: FLUTICASONE PROPION/SALMETEROL 14 PUFF DISK.W.DEV IH SCH (09:00)
[2019-04-21] MEDS ORDERED: FOLIC ACID 0.4 MG TABLET PO SCH (09:00)
[2019-04-21] MEDS ORDERED: LURASIDONE HCL 80 MG TABLET PO SCH (09:00)
[2019-04-21] MEDS ORDERED: buPROPion HCL 150 MG TABLET.SA PO SCH (09:00)
[2019-04-21] MEDS ORDERED: FUROSEMIDE 40 MG TABLET PO SCH (09:00)
[2019-04-21 10:22] VITALS: BP 106/56
[2019-04-21] MEDS ORDERED: MONTELUKAST SODIUM 10 MG TABLET PO SCH (18:00)
[2019-04-21] MEDS ORDERED: PRAZOSIN HCL 1 MG CAPSULE PO SCH (21:00)
--- NOTE | 2019-05-06 08:21 | DS ---
(1) Acute asthma exacerbation Problem: Resolved Qualifiers: Asthma severity: unspecified severity Asthma persistence: unspecified Qualified Code(s): J45.901 - Unspecified asthma with (acute) exacerbation (2) Tjstd-0-ycfcrieruzr deficiency Problem: Chronic Description of Stay: Shayy is a 23 yo female admitted for asthma exacerbation. She has a history of alpha 1 antitrypsin. She was severely dyspneic and it was felt she needed to be started on treatment and monitored for response in the hospital. She was treated with steroids, nebulizers, azithromycin, and monitored overnight. She did well and improved overnight to the point she was ready to go home and left before being officially discharged. She had plans to follow up with her pony roll finisher Dr. Bain. Procedures Performed: none Results and Findings: Lab Pending Results 04/20/19 12:50: WBC 6.3, RBC 5.22, Hgb 15.8, Hct 46.6, MCV 89.3, MCH 30.3, MCHC 33.9, RDW 12.7, Plt Count 238, MPV 8.8, Immature Gran % (Auto) 0.30, Immature Gran # (Auto) 0.02, Neutrophils % 44.3, Lymphocytes % 44.0, Monocytes % 7.8, Eosinophils % 3.0, Basophils % 0.6, Nucleated RBC % 0.0, Neutrophils # 2.8, Lymphocytes # 2.76, Monocytes # 0.5, Eosinophils # 0.2, Absolute Basophils 0.0 04/20/19 12:50: Sodium 141, Plasma Sodium 141, Potassium 3.9, Chloride 105, Carbon Dioxide 22.6 L, Anion Gap 17.3 H, BUN 7, Creatinine 0.71, Est GFR (Non-Af Amer) 107 D, BUN/Creatinine Ratio 9.9, Random Glucose 119 H, Calcium 8.3, Calcium Adj for Albumin 8.5, Total Bilirubin 0.7, AST 20, ALT 36, Alkaline Phosphatase 68, Total Protein 6.8, Albumin 3.3 L 04/20/19 12:50: Serum HCG, Qual Negative Discharge Location: Home Disposition: Against medical advice Condition: Stable Discharge Activity: Activity as tolerated Discharge Diet: General/regular food Referrals: Beatriz Rivera ARNP [Primary Care Provider] - Chris Bain MD [Associate] - Problem Oriented Discharge Instructions to Patient/Family: Bronchospasm, Adult Complete Home Medications List: Complete Home Medication List: Montelukast Sodium [Singulair] 10 mg PO DAILY 02/05/15 Folic Acid 0.8 mg PO DAILY 08/10/16 Loratadine [Claritin] 10 mg PO DAILY 08/10/16 Lurasidone HCl [Latuda] 40 mg PO DAILY 08/10/16 Prazosin HCl [Minipress] 1 mg PO HS 08/10/16 Fluticasone Propion/Salmeterol [Advair 500-50 Diskus] 1 puff IH BID 11/15/17 Vits96/Iron Fum/Folic [ S] 1 tab PO DAILY 11/15/17 clonazePAM [Klonopin] 1 mg PO Q4H PRN 11/15/17 Albuterol Sulfate [Ventolin HFA] 1 puff INHALATION PRN PRN 01/16/19 Bupropion HCl [Wellbutrin Sr] 300 mg PO DAILY 01/16/19 Fluticasone Propionate [Flonase] 1 spray NS DAILY 01/16/19 Furosemide [Lasix] 40 mg PO DAILY 01/16/19 Tiotropium [place] [Spiriva] 2 cap INHALATION DAILY 01/16/19 predniSONE [Prednisone] 5 mg PO DAILY 01/16/19 Levalbuterol Tartrate [Xopenex Hfa] 15 gm INHALATION Q4H PRN 04/20/19
== END 2019-04-21 15:07 | disposition left against medical advice (07) ==
LOC: ER 12:07 → MS 12:07
PROVIDERS: ADMIT Family Medicine; ATTEND Family Medicine
CPT/HCPCS: 36415; 71020; 71046; 80053; 84703; 85025; 93005; 94640; 94664; 96372; 99285; G0378